=== PATIENT | male | born 1980 | race Caucasian/White ===

== ENCOUNTER 2017-08-10 00:51 | Emergency (ER) | payer BC ==
[~2017-08-10] VITALS: Ht 185.4 cm; Wt 118.0 kg
[2017-08-10] MEDS ORDERED: METHOCARBAMOL 750 MG TABLET ONE (01:12)
[2017-08-10] MEDS ORDERED: IBUPROFEN 200 MG TABLET ONE (01:12)
[2017-08-10] MEDS ORDERED: IBUPROFEN 200 MG TABLET PO ONE (01:30)
[2017-08-10] MEDS ORDERED: METHOCARBAMOL 750 MG TABLET PO ONE (01:30)
[2017-08-10 02:31] VITALS: BP 135/74
== END 2017-08-10 02:33 | disposition home or self-care (01) ==
LOC: ED 01:43
DX: S06.0X0A Concussion without loss of consciousness, initial encounter (principal); S16.1XXA Strain of muscle, fascia and tendon at neck level, initial encounter; V43.52XA Car driver injured in collision with other type car in traffic accident, initial encounter; Y93.89 Activity, other specified; Y92.410 Unspecified street and highway as the place of occurrence of the external cause; Y99.9 Unspecified external cause status
CPT/HCPCS: 70450; 71010; 72125; 99284